=== PATIENT | female | born 1970 | race Caucasian/White ===

== ENCOUNTER → 2018-09-24 18:02 | Outpatient (CLI) | payer OTHER, SELFPAY ==
[2018-09-24 19:02] LABS: Amphetamine/Metha Screen,Urine Negative ng/mL (<1000); Barbiturates Screen,Urine Negative ng/mL (<200); Benzodiazepines Screen,Urine Negative ng/mL (<200); Cannabinoid Screen,Urine Negative ng/mL (<50); Cocaine Screen,Urine Negative ng/mL (<300); Methadone Screen,Urine Negative ng/mL (<300); Opiate Screen,Urine Negative ng/mL (<300); Phencyclidine Screen,Urine Negative ng/mL (<25)
== END ==
PROVIDERS: Visit Provider Physician Assistant
DX: Z79.899 Other long term (current) drug therapy (principal)
CPT/HCPCS: 80305

== ENCOUNTER → 2018-10-22 11:05 | Outpatient (CLI) | payer OTHER, SELFPAY ==
[2018-10-23 16:06] LABS: Estradiol 206.6 pg/mL (.)
[2018-10-24 06:07] LABS: Testosterone,Free 0.6 pg/mL (0.0-4.2)
== END ==
PROVIDERS: PCP Physician Assistant; Visit Provider Obstetrics & Gynecology
DX: N95.1 Menopausal and female climacteric states (principal)
CPT/HCPCS: 36415; 82670; 84402

== ENCOUNTER → 2019-08-20 16:33 | Outpatient (CLI) | payer OTHER, SELFPAY | PROVIDERS: Visit Provider Physician Assistant | DX: R10.9 Unspecified abdominal pain (principal) | CPT/HCPCS: 87086 ==

== ENCOUNTER → 2020-08-04 19:31 | Outpatient (CLI) | payer BC, SELFPAY | PROVIDERS: Visit Provider Physician Assistant | DX: N39.0 Urinary tract infection, site not specified (principal) | CPT/HCPCS: 87086 ==

== ENCOUNTER 2022-03-17 09:19 | Emergency (ER) | payer BC, SELFPAY ==
[2022-03-17 09:19] VITALS: BP 138/92; PULSE 110; RESP 18; TEMP 37; O2SAT 99; BMI 22.8
[2022-03-17 10:07] LABS: Strep Scrn Group A (Rapid) Negative (Negative)
--- NOTE | 2022-03-17 10:23 | HMH.EDUTC ---
[facility] [place] Impression: Sinusitis Qualifiers: Sinusitis location: unspecified location Chronicity: unspecified Qualified Code(s): J32.9 - Chronic sinusitis, unspecified Disposition: Home, Self-Care Condition on Discharge: Good Instructions: Sinusitis, DI for Sinusitis Additional Instructions: *Monitor Temp, Over the counter Motrin or Tylenol as directed/as needed Tylenol every 4 hours and Motrin every 6 hours (as long as your family doctor has told you that you can take it) for fever or pain. and straight to ER if unable to lower temp less than 101.0 after medication given *Warm salt water gargles may help to soothe the throat *Throat Lozenges *Warm fluids like tea with honey may help to soothe the throat *Sleep elevated *Humidifier/Vaporizer Your throat swab was sent for culture. Those results are typically sent to your primary care. Be sure to follow up in 2-3 days with your family doctor/primary care physician if no improvement so they can review those result and treat if necessary. If you don?t have a primary care doctor, I recommend you get one but in the mean time, you will have to return to a walk in clinic Follow up IMMEDIATELY for new or worsening symptoms or no Noticeable improvement over the next 48-72 hours. 911 for difficulty breathing or swallowing Prescriptions: Amoxicillin/Potassium Clav [Amox-Clav 875-125 mg Tablet] 1 tab PO BID #14 tab Transmission Status: Pending to [facility] #[id number] Fluticasone Propionate [Flonase 50mcg nasal spray 16gm] 1 spr NS DAILY #1 each Transmission Status: Pending to [facility] #[id number] Referrals: Alondra Browning PA [Primary Care Provider] - As needed Time of Disposition: 10:35 Medical Decision Making - Tucker Inquiry Pt receiving controlled substance: No Tucker was queried for this patient: No Vital Signs: 03/17/22 09:19 Temperature 98.6 F Temperature Source Oral Pulse Rate [Left Radial] 110 H Respiratory Rate 18 Blood Pressure [Right Arm] 138/92 H Blood Pressure Mean [Right Arm] 107 Blood Pressure Source [Right Arm] Automatic Cuff Blood Pressure Position [Right Arm] Sitting 02 Sat by Pulse Oximetry 99 Oxygen Delivery Method Room Air - Lab Data Lab results reviewed: Yes: I reviewed the patient's lab results. Lab Results 03/17/22 09:40: Group A Strep Rapid Negative Orders (Tests/Meds): ORDERS Category Date Time Status Strep Screen Confirmation Stat Micro 03/17/22 09:40 [place] [facility] [place] - General Stated complaint: congestion, sore throat, h/a, right ear ache Time Seen by Provider: 03/17/22 10:23 Mode of Arrival: Ambulatory Source of Information: Patient Limitations: No Limitations Description of Symptoms (Recalled from Triage Doc. by RN): c/o runny nose, sinus pressure, scratchy throat and ear pain for 2 days HEENT Symptoms (Recalled from RN notes): Yes Resp Symptoms (Recalled from RN notes): No Skin Symptoms (Recalled from RN notes): No MS Symptoms (Recalled from RN notes): No Functional Status (Recalled from RN notes): na - History of Present Illness Provider Complaint: Patient states that she has been having sinus pain and pressure for over a week and for the last couple of days she has been having pain in her right ear and pressure behind her eyes and in her teeth States that today she was still not feeling well so she came in to get checked out - Related Data Home Medications Medication Instructions Recorded Confirmed lorazepam 0.5 mg tablet 0.25 mg PO QHS PRN tab 06/16/19 06/03/20 Previous Rx's Medication Instructions Recorded ondansetron 8 mg disintegrating 8 mg PO Q8H PRN 5 Days #10 tab 08/06/20 tablet ciprofloxacin HCl 500 mg tablet 500 mg PO BID 5 Days #10 tab 06/21/21 phenazopyridine 200 mg tablet 200 mg PO TID PRN 0 Days #6 tab 06/21/21 Amoxicillin/Potassium Clav 1 tab PO BID #14 tab 03/17/22 [Amox-Clav 875-125 mg Tablet] Fluticasone Propionate [Flon
[2022-03-17 10:40] VITALS: BP 138/92; PULSE 110; RESP 18; TEMP 37; O2SAT 99
== END 2022-03-17 10:41 | disposition home or self-care (01) ==
PROVIDERS: Emergency Provider Nurse Practitioner; PCP Physician Assistant
DX: J32.9 Chronic sinusitis, unspecified (principal)
CPT/HCPCS: 87430; 99212; G0463

== ENCOUNTER 2022-04-13 18:59 | Emergency (ER) | payer BC, SELFPAY ==
--- NOTE | 2022-04-13 19:11 | XR_ITS ---
PROCEDURE INFORMATION: Exam: XR Chest Exam date and time: 04/13/2022 7:18 PM Age: 52 years old Clinical indication: Cough; Additional info: Congestion TECHNIQUE: Imaging protocol: XR of the chest. Views: 2 views. COMPARISON: No relevant prior studies available. FINDINGS: Lungs: Solitary approximate 3 mm nodule demonstrated laterally in the left upper lobe. No evidence of acute cardiopulmonary disease. Pleural spaces: Unremarkable. No pleural effusion. No pneumothorax. Heart/Mediastinum: Unremarkable. No cardiomegaly. Bones/joints: Unremarkable. IMPRESSION: 1. No evidence of acute cardiopulmonary disease. 2. Solitary 3 mm nodule demonstrated laterally in the left upper lung. Findings may correspond to a calcified granuloma. If no prior radiographs available to establish stability of the findings, follow-up with computerized tomography.
[2022-04-13 19:12] VITALS: BP 146/86; PULSE 114; RESP 16; TEMP 36.8; O2SAT 97; BMI 22.8
--- NOTE | 2022-04-13 19:20 | HMH.EDUTC ---
[facility] – [place] Disposition Clinical Impression: Bronchitis Disposition: Home, Self-Care Condition on Discharge: Good Instructions: Methylprednisolone Additional Instructions: Continue taking prescribed antibiotics as prescribed by your Family Doctor Your Prednisone was changed to Medrol dose pack as requested Make sure to follow up with your Family Doctor for repeat chest xray and further imaging if needed Return if needed Straight to ER if any life threatening symptoms Prescriptions: methylPREDNISolone [Medrol 4mg tab] 4 mg PO DIRECTED #21 tab Transmission Status: Pending to [facility] #[id number] Referrals: Alondra Browning PA [Primary Care Provider] - As needed Time of Disposition: 20:36 Medical Decision Making - Tucker Inquiry Pt receiving controlled substance: No Tucker was queried for this patient: No Vital Signs: 04/13/22 19:12 Temperature 98.3 F Temperature Source Oral Pulse Rate [Left] 114 H Respiratory Rate 16 Blood Pressure [Right Arm] 146/86 H Blood Pressure Mean [Right Arm] 106 02 Sat by Pulse Oximetry 97 - Radiology Data #1 Image(s): Chest Image Reviewed: Yes I have reviewed radiologist's interpretation Medical Decision Narrative: Discussed xray finding and recommended follow up with her PCP for further imaging due to no images available for comparison and patient agreed [facility] [place] HPI - General Stated complaint: SOA, yamilex Time Seen by Provider: 04/13/22 19:20 Mode of Arrival: Ambulatory Source of Information: Patient Limitations: No Limitations Description of Symptoms (Recalled from Triage Doc. by RN): pt states she has had congestion, tightness in her lungs and a cough since Sat. pt states Tues. she was seen by her PCP and given a rocephin and decadron inj. pt was also given a zpack. pt states today would be day three but she has not taken it today. pt also states she was prescribed prednisone but that it makes her sick so she didn't pick it up. HEENT Symptoms (Recalled from RN notes): Yes Resp Symptoms (Recalled from RN notes): Yes Skin Symptoms (Recalled from RN notes): No MS Symptoms (Recalled from RN notes): No Functional Status (Recalled from RN notes): wnl - History of Present Illness Provider Complaint: Patient states that she was seen by her PCP a few days ago and was given Rocephin shot and started on azithromycin and prescribed Prednisone States that she didnt get the prednisone filled because it makes her sick and she usually does a taper pack and she can handle that better States that she came in tonight wanting to get her prednisone prescription changed and maybe get an xray to see if she may have bronchitis or something - Related Data Home Medications Medication Instructions Recorded Confirmed lorazepam 0.5 mg tablet 0.25 mg PO QHS PRN tab 06/16/19 04/11/22 progesterone micronized 4 % 1 appful VG Q OTHER DAY 04/11/22 04/11/22 vaginal gel Previous Rx's Medication Instructions Recorded azithromycin 250 mg tablet See Rx Instructions PO .COMPLEX #6 04/11/22 tab benzonatate 100 mg capsule 100 mg PO TID PRN #30 cap 04/11/22 methylPREDNISolone [Medrol 4mg 4 mg PO DIRECTED #21 tab 04/13/22 tab] Allergies Allergy/AdvReac Type Severity Reaction Status Date / Time No Known Allergies Allergy Verified 04/11/22 15:56 - Worker's Comp Is this a Worker's Comp case?: No [facility] History - Hepatitis A Screen Attestation statement:: This patient has been screened for Hepatitis A risk factors. I have reviewed the patient's past medical history: Yes Medical History: Reports:: Anxiety, Urinary Tract Infection Denies:: Cancer, Diabetes Mellitus Type 1, Diabetes Mellitus Type 2, Internal Pacemaker, MRSA, Seizures Other Surgeries: Yes: Colonoscopy, Hysterectomy-Total. No: Pacemaker Amputation: No Fractures: No - Social History Smoking Status: Never smoker Alcohol Intake: never Substance Use Type: denies use Occupational Status: employe
[2022-04-13 20:53] VITALS: BP 146/86; PULSE 114; RESP 16; TEMP 36.8
== END 2022-04-13 20:54 | disposition home or self-care (01) ==
PROVIDERS: Emergency Provider Nurse Practitioner; PCP Physician Assistant
DX: J40 Bronchitis, not specified as acute or chronic (principal); N39.0 Urinary tract infection, site not specified; F41.9 Anxiety disorder, unspecified; Z79.52 Long term (current) use of systemic steroids; Z82.49 Family history of ischemic heart disease and other diseases of the circulatory system; Z80.9 Family history of malignant neoplasm, unspecified
CPT/HCPCS: 71046; 96372; 99213; G0463; J0696

== ENCOUNTER → 2022-11-09 16:06 | Outpatient (CLI) | payer BC, SELFPAY ==
--- NOTE | 2022-11-09 16:42 | XR_ITS ---
FINAL REPORT CLINICAL HISTORY: f/u 3mm solitairy nodule COMPARISON: 04/13/2022 FINDINGS: 2 views of the chest were obtained . The heart is normal in size. The mediastinum is within normal limits. There is a stable, 5 mm nodule in the left upper lobe, favor granuloma. The lungs are otherwise clear. There is no pneumothorax. Osseous structures are unremarkable. IMPRESSION: Stable 5 mm left upper lobe nodule, favor granuloma. Reviewed, Interpreted and Dictated by Kasi Figueroa III, MD Transcribed by Bozena Dias Authenticated and [facility]
== END ==
PROVIDERS: PCP Physician Assistant; Visit Provider Physician Assistant
DX: R91.1 Solitary pulmonary nodule (principal)
CPT/HCPCS: 71046

== ENCOUNTER 2023-06-02 16:04 | Emergency (ER) | payer BC, SELFPAY ==
[2023-06-02] VITALS (8 sets, daily range): BP systolic 113–165; BP diastolic 72–89; PULSE 72–90; RESP 16; TEMP 36.6–36.9; O2SAT 96–99; BMI 22.4
--- NOTE | 2023-06-02 16:27 | PC.NURSE ---
DR NICE AT BEDSIDE
--- NOTE | 2023-06-02 16:35 | CT_ITS ---
PROCEDURE INFORMATION: Exam: CT Head Without Contrast Exam date and time: 06/02/2023 4:41 PM Age: 53 years old Clinical indication: Headache not specified; Patient HX: Sharp pains radiating through head x 1 wk. PT states she experiences a lot of pressure in RT side of face, no change of vision or vertigo; Additional info: Cluster h/a TECHNIQUE: Imaging protocol: Computed tomography of the head without contrast. Radiation optimization: All CT scans at this facility use at least one of these dose optimization techniques: automated exposure control; mA and/or kV adjustment per patient size (includes targeted exams where dose is matched to clinical indication); or iterative reconstruction. REPORTING DATA: Count of CT and Cardiac NM exams in prior 12 months: This patient has received 0 known CTs and 0 known cardiac nuclear medicine studies in the 12 months prior to the current study. COMPARISON: No relevant prior studies available. FINDINGS: Brain: No evidence of acute parenchymal hemorrhage, extra-axial collection or local regional mass effect. Cerebral ventricles: The ventricles, sulci and cisterns are normal in size and configuration. No hydrocephalus or midline structure shift Pituitary gland and sella: Sellar/parasellar structures, orbits and craniocervical junction are unremarkable Paranasal sinuses: Visualized sinuses are unremarkable. No fluid levels. Mastoid air cells: Visualized mastoid air cells are well aerated. Bones/joints: No calvarial fracture Soft tissues: Unremarkable. IMPRESSION: No acute intracranial abnormality. No calvarial fracture.
--- NOTE | 2023-06-02 16:55 | PC.NURSE ---
ANNA WAS AT BS
[2023-06-02 17:09] LABS: Basophils # 0.1 K/mm3 (0-0.2); Basophils % 0.8 % (0.1-2.0); Eosinophils # 0.3 K/mm3 (0.0-0.4); Eosinophils % 3.9 % (0.1-12.0); Hematocrit 44.1 % (37.0-47.0); Hemoglobin 13.6 g/dL (12.2-16.2); Lymphocytes # 2.3 K/mm3 (0.7-4.5); Lymphocytes % 27.9 % (10-50); Mean Corpuscular HGB Conc 30.8 g/dL (31.8-35.4); Mean Corpuscular Hemoglobin 30.3 pg (27.0-31.2); Mean Corpuscular Volume 98.2 fl (81-99); Mean Platelet Volume 7.9 fl (7.4-10.4); Monocytes # 0.6 K/mm3 (0.1-1.0); Monocytes % 6.8 % (1.7-9.3); Neutrophils # 4.9 K/mm3 (1.8-7.8); Neutrophils % 60.7 % (37.0-80.0); Platelet Count 315 K/mm3 (142-424); Red Cell Distribution Width 13.6 % (11.5-17.5); White Blood Count 8.1 K/mm3 (4.8-10.8)
[2023-06-02 17:13] LABS: Alanine Aminotransferase 26 U/L (12-78); Albumin Level 4.1 g/dl (3.5-5.0); Albumin/Globulin Ratio 1.3 (1.1-1.8); Alkaline Phosphatase 113 U/L (38-126); Anion Gap 10.4 mEq/L (5-15); Aspartate Amino Transferase 31 U/L (14-36); Bilirubin,Total 0.4 mg/dl (0.2-1.3); Blood Urea Nitrogen 9 mg/dl (7-17); Calcium 9.6 mg/dl (8.4-10.2); Carbon Dioxide 30 mmol/L (22.0-30.0); Chloride 105 mmol/L (98-107); Creatinine Clearance Estimated 58 mL/min (50-200); Estimated Glomerular Filt Rate 65 ml/min (>60); GFR (African American) 79 ML/MIN (>60); Globulin 3.1 g/dL (1.3-3.2); Glucose 84 mg/dl (74-100); Potassium 3.4 mmoL/L (3.5-5.1); Sodium 142 mmol/L (136-145); Total Protein,Serum 7.2 g/dl (6.3-8.2)
--- NOTE | 2023-06-02 17:15 | PC.NURSE ---
ROUNDED ON PT NOTHING NEEDED AT THIS TIME, CALL LIGHT AT BS
[2023-06-02 17:18] LABS: C-Reactive Protein 2.8 mg/L (0-4)
[2023-06-02 17:43] LABS: Erythrocyte Sedimentation Rate 34 mm/hr (0-30)
--- NOTE | 2023-06-02 18:06 | HMH.EDGENADL ---
Discharge Plan Disposition Patient Disposition: Home, Self-Care Condition: Good Prescriptions Prescriptions: No Action lorazepam 0.5 mg tablet 0.25 mg PO QHS PRN (Reason: nerves) progesterone micronized 4 % gel 1 appful VG Q OTHER DAY azithromycin [Zithromax Z-Georges] 250 mg tablet See Rx Instructions PO .COMPLEX Qty: 6 0RF Rx Instructions: For 250 mg dose pack: take 500 mg today (day 1), then 250 mg for 4 days (days 2-5) PO methylprednisolone 4 mg tablet 4 mg PO DIRECTED Qty: 21 0RF Rx Instructions: Take as directed on package instructions Referrals Follow up/Referrals: Alondra Browning PA [Primary Care Provider] - See instructions Activity Restrictions/Add. Instructions Additional Instructions/Restrictions: Follow-up with your family doctor regarding this visit to the emergency department within the next 72 hours. If you have any other concerning signs or symptoms, return to the ER or your family doctor for further evaluation. Take Tylenol 1000 mg every 6 hours (4 times daily) and ibuprofen 400 mg every 6 hours (4 times daily) as needed with food and water to prevent GI upset and kidney damage. Clinical Impressions Clinical Impression: Cluster headache Qualifiers: Headache chronicity pattern: episodic headache Intractability: not intractable Qualified Code(s): G44.019 - Episodic cluster headache, not intractable Discharge ED Provider: Clement Cervantes General Adult HPI General Chief complaint: Headache Stated complaint: pain shooting to top of head Time Seen by Provider: 06/02/23 16:14 Mode of Arrival: Ambulatory Source of Information: Patient Limitations: No Limitations Description of Symptoms (Recalled from ER Triage Doc. by RN): PT REPORTS INTERMITTENT SUDDEN, SHARP PAIN TO THE TOP OF HER HEAD. PAIN LASTS ABOUT 30 SECONDS, HAS BEEN INTERMITTENT FOR ABOUT 1 WEEK. DENIES VISUAL DISTURBANCE OR RADIATING PAIN. DENIES PAIN AT THIS TIME. NO ACCIDENT OR INJURY History of Present Illness HPI narrative: Is a 53-year-old female with no relevant medical history presenting with headache. Headaches last approximately 20 to 30 seconds, are self aborting. Happened mostly in later afternoon and evening. Patient states that she started having headaches approximately 2 weeks prior to arrival. They are right-sided, feel deep in her skull, associated with right-sided tearing of the eye. Denies vision changes, facial weakness, right upper or right lower extremity symptoms, left sided symptoms. Denies any trauma, jaw claudication, fevers, chills, weight loss, scalp tenderness, rash, or any other concerns. Related Data Home Medications Medication Instructions Recorded Confirmed lorazepam 0.5 mg tablet 0.25 mg PO QHS PRN nerves 06/16/19 08/24/22 progesterone micronized 4 % 1 appful vaginal Q OTHER DAY 04/11/22 08/24/22 vaginal gel Previous Rx's Medication Instructions Recorded azithromycin 250 mg tablet See Rx Instructions PO .COMPLEX #6 08/24/22 (Zithromax Z-Georges) tabs methylprednisolone 4 mg tablet 4 mg PO DIRECTED #21 tabs 08/24/22 Allergies Allergy/AdvReac Type Severity Reaction Status Date / Time No Known Allergies Allergy Verified 08/24/22 13:55 [facility] Disclaimer: The information contained in this section may have been updated after the patient was seen, as this information can be updated by other users. Medical History (Updated 06/02/23 @ 18:09 by Clement Cervantes MD) Anxiety Otitis media Surgical History (Updated 06/02/23 @ 16:15 by Zena Rios RN) History of hysterectomy Hx of cholecystectomy Family History (Updated 06/02/23 @ 16:15 by Zena Rios RN) Other No significant family history Social History (Updated 06/02/23 @ 16:15 by Zena Rios RN) Smoking Status: Never smoker second hand exposure: No alcohol intake: never substance use type: denies use current occupational status: employed Travel in the [employer]
== END 2023-06-02 18:25 | disposition home or self-care (01) ==
PROVIDERS: Emergency Provider Emergency Medicine; PCP Physician Assistant
DX: G44.019 Episodic cluster headache, not intractable (principal); F41.9 Anxiety disorder, unspecified
CPT/HCPCS: 70450; 80053; 85025; 85651; 86140; 99285

== ENCOUNTER → 2023-06-15 14:39 | Outpatient (CLI) | payer BC, SELFPAY ==
--- NOTE | 2023-06-15 14:39 | MR_ITS ---
FINAL REPORT TECHNIQUE: Imaging of the intracerebral vasculature was obtained without intravenous contrast using [id number] imaging. CLINICAL HISTORY: headaches on top of head for 30 seconds x 2-3 times a day for 2-3 weeks COMPARISON: None FINDINGS: Flow related signal intensity within the intracerebral vasculature is preserved. There is no evidence of aneurysm, significant stenosis or AVM. IMPRESSION: Unremarkable MR angiogram of the brain without contrast. Reviewed, Interpreted and Dictated by Julia Mirza MD Transcribed by Franny Marrero Authenticated and [facility]
--- NOTE | 2023-06-15 14:39 | MR_ITS ---
FINAL REPORT TECHNIQUE: Multiplanar and multisequence imaging of the brain was obtained without contrast. CLINICAL HISTORY: headaches headaches on top of head for 30 seconds x 2-3 times a day for 2-3 weeks COMPARISON: None FINDINGS: There is global atrophy. There is no mass effect or midline shift. There are no areas of abnormal signal intensity. The ventricles are symmetric without hydrocephalus. The cerebellum and brainstem have an unremarkable appearance. There are no areas of restricted diffusion on diffusion weighted images to suggest acute infarct. Posterior fossa is without acute abnormality. Signal intensity in the proximal cord is normal. Soft tissues are without acute abnormality. IMPRESSION: No acute intracranial abnormality. Reviewed, Interpreted and Dictated by Julia Mirza MD Transcribed by Franny Marrero Authenticated and [facility]
== END ==
PROVIDERS: PCP Physician Assistant; Visit Provider Physician Assistant
DX: G44.019 Episodic cluster headache, not intractable (principal)
CPT/HCPCS: 70544; 70551

== ENCOUNTER 2023-12-17 15:06 | Outpatient (CLI) | payer BC, SELFPAY ==
--- NOTE | 2023-12-17 15:06 | CT_ITS ---
FINAL REPORT TECHNIQUE: Axial images were obtained from the lung apex to the mid abdomen by computed tomography. Coronal reformatted images were obtained. This study was performed with techniques to keep radiation doses as low as reasonably achievable, (ALARA). Individualized dose reduction techniques using automated exposure control or adjustment of mA and/or kV according to the patient''s size were employed. CLINICAL HISTORY: nodule COMPARISON: Chest x-ray 11/09/2022 FINDINGS: There is no axillary adenopathy. There is no mediastinal mass or adenopathy. There is a calcified left hilar lymph node. Heart size is normal. There is no pericardial or pleural effusion. There is a calcified granuloma in the left upper lobe. No suspicious infiltrate or nodule is identified. Limited images of the upper abdomen demonstrate no acute findings. IMPRESSION: Calcified granuloma left upper lobe likely represents findings on prior chest x-ray. No acute cardiopulmonary process. Reviewed, Interpreted and Dictated by Tre Spence MD Transcribed by Franny Marrero Authenticated and [facility]
== END 2023-12-17 23:59 ==
PROVIDERS: PCP Physician Assistant; Visit Provider Physician Assistant
DX: R91.1 Solitary pulmonary nodule (principal)
CPT/HCPCS: 71250

== ENCOUNTER 2024-04-02 10:32 | Outpatient (CLI) | payer BC, SELFPAY ==
--- NOTE | 2024-04-02 10:44 | XR_ITS ---
FINAL REPORT CLINICAL HISTORY: chest pain COMPARISON: None FINDINGS: Two views of the chest were obtained. The heart size and pulmonary vascularity are within normal limits. The mediastinum is normal. No acute pulmonary abnormality is identified. There is no pneumothorax. The bony thorax is intact. IMPRESSION: No active cardiopulmonary disease. Reviewed, Interpreted and Dictated by Kasi Figueroa III, MD Transcribed by Consuelo Cary Authenticated and [facility] [place]
[2024-04-02 11:23] LABS: D-Dimer 0.64 ug/mL (0.0-0.5)
[2024-04-02 11:32] LABS: Cholesterol 269 mg/dl (140-200); Triglycerides 277 mg/dl (30-150); VLDL Cholesterol 55 mg/dL (0-40)
[2024-04-02 11:39] LABS: Chol/HDL Ratio 2.5 (1-3.5); HDL Cholesterol 107 mg/dl (40-60)
[2024-04-02 11:43] LABS: Direct LDL Cholesterol 62.53 mg/dL (100-129)
[2024-04-02 11:58] LABS: Troponin I < 0.01 ng/ml (0.00-0.034)
== END 2024-04-02 23:59 | disposition home or self-care (01) ==
LOC: LAB 10:34
PROVIDERS: PCP Physician Assistant; Visit Provider Family Medicine
DX: R07.9 Chest pain, unspecified (principal)
CPT/HCPCS: 36415; 71046; 80061; 84484; 85378

== ENCOUNTER 2024-04-02 18:42 | Emergency (ER) | payer BC, SELFPAY ==
[2024-04-02 18:44] VITALS: BP 159/85; PULSE 85; RESP 16; TEMP 36.8; O2SAT 98; BMI 23.4
[2024-04-02 19:00] VITALS: BP 149/90; PULSE 95; O2SAT 99
--- NOTE | 2024-04-02 19:04 | ED_ITS ---
Discharge Plan Disposition Patient Disposition: Home, Self-Care Chief Complaint: Recheck/Abnormal Lab/Rx Prescriptions Prescriptions: No Action progesterone micronized 200 mg capsule 200 mg PO HS thyroid (pork) [FIBERGLASS TECHNICIAN Thyroid] 30 mg tablet 30 mg PO DAILY Patient Comments: TAKE 1 TABLET BY MOUTH EVERY MORNING AND 1 TABLET BY MOUTH MID-AFTERNOON omeprazole 20 mg capsule,delayed release(DR/EC) 20 mg PO DAILY Qty: 30 2RF sucralfate [Carafate] 1 gram tablet 1 g PO BID Qty: 60 2RF lorazepam 0.5 mg tablet 0.25 mg PO QHS PRN (Reason: nerves) buspirone 5 mg tablet 5 mg PO DAILY Referrals Follow up/Referrals: Alondra Browning PA [Primary Care Provider] - See instructions Activity Restrictions/Add. Instructions Additional Instructions/Restrictions: Call your family doctor to establish care for this visit to the emergency department and schedule follow-up within 48 hours to ensure improvement. If you have any worsening of your condition or any other concerning signs or symptoms, return to the emergency department or your primary care doctor for further evaluation. Daily antihistamine like Zyrtec or Claritin can help with postnasal drip symptoms. Clinical Impressions Clinical Impression: Cough Discharge ED Provider: Clement Cervantes General Adult HPI <NITHYA Tang - Last Filed: 04/02/24 19:04> General Chief complaint: Recheck/Abnormal Lab/Rx Stated complaint: Abnormal Lab work Time Seen by Provider: 04/02/24 18:51 Related Data Home Medications Medication Instructions Recorded Confirmed lorazepam 0.5 mg tablet 0.25 mg PO QHS PRN nerves 06/16/19 04/02/24 progesterone micronized 200 mg 200 mg PO HS 07/18/23 04/02/24 capsule buspirone 5 mg tablet 5 mg PO DAILY 11/22/23 04/02/24 thyroid (pork) 30 mg tablet (FIBERGLASS TECHNICIAN 30 mg PO DAILY 04/02/24 04/02/24 Thyroid) Previous Rx's Medication Instructions Recorded omeprazole 20 mg capsule,delayed 20 mg PO DAILY #30 caps 04/02/24 release sucralfate 1 gram tablet (Carafate) 1 g PO BID #60 tabs 04/02/24 Allergies Allergy/AdvReac Type Severity Reaction Status Date / Time No Known Allergies Allergy Verified 04/02/24 09:47 <Clement Cervantes MD - Last Filed: 04/02/24 20:27> History of Present Illness HPI narrative: Please note that above description of symptoms, in this electronic medical record under categorization of recalled from ER triage doctor by RN are reflective of an initial nursing assessment, however, is not reflective of my full history and physical exam that was personally taken and clarified. Consequentially, this preceding description of symptoms, which may include the patient's categorized chief complaint in the EMR, do not reflect my personal clinical impression, and the ultimate description of history of present illness and patient stated complaints should be deferred to this section of the note. Unless stated otherwise or congruent with this section of the note, additional signs, symptoms, or incongruence should be interpreted as inaccurate with my clinical impression. [facility] <NITHYA Tang - Last Filed: 04/02/24 19:04> [facility] Disclaimer: The information contained in this section may have been updated after the patient was seen, as this information can be updated by other users. Medical History Otitis media Anxiety Surgical History Hx of cholecystectomy History of hysterectomy Family History Other No significant family history Social History Smoking Status: Never smoker second hand exposure: No alcohol intake: never substance use type: denies use current occupational status: employed Travel in the last 8 weeks: None household members: spouse housing: house current occupation: [employer] current occupational exposures/hazards: No caffeine: Yes <NITHYA Tang - Last Filed: 04/02/24 19:04> ROS Obtained: Yes Systems reviewed as appropriate & no additional complaints except as documented Physical Exam <NITHYA Tang - Last Filed: 04/02/24 19:04> General General appearance: alert and in no apparent distress Head Head exam: atraumatic and normal inspection Eye Eye exam: Present normal appearance, PERRL and EOMI ENT ENT exam: Present normal exam, normal oropharynx and mucous membranes moist Neck Neck exam: Present normal inspection, full ROM and trachea midline; Absent lymphadenopathy Chest Chest inspection: Present normal inspection and symmetric chest wall rise Respiratory Respiratory exam: Present normal lung sounds bilaterally; Absent accessory muscle use Cardiovascular Cardiovascular exam: Present regular rate, normal rhythm, normal heart sounds, +S1 and +S2 Abdominal Exam Abdominal exam: Present soft and normal bowel sounds; Absent tenderness, guarding or rebound Extremities Exam Extremities exam: Present normal inspection and full ROM Neurological Exam Neurological exam: Present alert, oriented X3 and CN II-XII intact Psychiatric Psychiatric exam: Present normal affect and normal mood Skin Skin exam: Present warm, dry and normal color Lymphatic Lymphatic Findings: no adenopathy <Clement Cervantes MD - Last Filed: 04/02/24 20:27> Respiratory Respiratory exam: Absent respiratory distress, wheezes, stridor or prolonged expiratory phase Medical Decision Making <NITHYA Tang - Last Filed: 04/02/24 19:04> Vital Signs: 04/02/24 18:44 04/02/24 19:00 04/02/24 19:30 Temperature 98.3 F Temperature Source Oral Pulse Rate 95 H 84 Pulse Rate [Right] 85 Respiratory Rate 16 Blood Pressure 149/90 H 132/83 Blood Pressure [Right Arm] 159/85 H Blood Pressure Mean 107 99 Blood Pressure Mean [Right Arm] 109 Blood Pressure Source [Right Arm] Automatic Cuff 02 Sat by Pulse Oximetry 98 99 99 Oxygen Delivery Method Room Air Lab Data Lab Results 04/02/24 18:58: WBC 12.4 H, RBC 4.93, Hgb 15.7, Hct 48.9 H, MCV 99.1 H, MCH 31.9 H, MCHC 32.1, RDW 14.4, Plt Count 337, MPV 7.9, Neut % (Auto) 65.5, Lymph % (Auto) 24.4, [place] % (Auto) 6.9, Eos % (Auto) 1.8, Baso % (Auto) 1.3, Neut # (Auto) 8.2 H, Lymph # (Auto) 3.0, [place] # (Auto) 0.9, Eos # (Auto) 0.2, Baso # (Auto) 0.2, D-Dimer 0.45, Sodium 140, Potassium 3.8, Chloride 101, Carbon Dioxide 28, Anion Gap 14.8, BUN 6 L, Creatinine 1.00, Estimated Creat Clear 54, Estimated GFR 57 L, Est GFR ( Amer) 69, Glucose 100, Calcium 10.5 H, Troponin I < 0.01 04/02/24 18:58 04/02/24 18:58 Orders (Tests/Meds): ED MEDICATIONS Discontinued Medications Generic Name Dose Route Start Last Admin Trade Name Felix PRN Reason Stop Dose Admin Acetaminophen 1,000 mg 04/02/24 19:06 04/02/24 19:32 Acetaminophen 1,000mg/100ml Vial IV 04/02/24 19:07 1,000 mg ONCE ONE Administration Belladonna Alkaloids 60 ml 04/02/24 19:06 04/02/24 19:35 Belladonna Alkaloids 60 Ml Ml PO 04/02/24 19:07 Not Given ONCE ONE Ketorolac Tromethamine 15 mg 04/02/24 19:06 04/02/24 19:32 Ketorolac 30mg/Ml Vial IV 04/02/24 19:07 15 mg ONCE ONE Administration ORDERS Category Date Time Status BMP [Basic Metabolic Panel] Stat Lab 04/02/24 18:58 Completed CBC w/Auto Diff [Complete Blood Count Auto Diff] Stat Lab 04/02/24 18:58 Completed D-Dimer Stat Lab 04/02/24 18:58 Completed Trop I [Troponin I] Stat Lab 04/02/24 18:58 Completed Troponin I Q3H Lab 04/02/24 22:15 Ordered Troponin I Q3H Lab 04/03/24 01:15 Ordered Medical Decision Narrative: In summary patient is a [age, sex] who presents to the emergency department for evaluation of [complaint]. Patient is [hemodynamically stable/unstable] upon arrival, [febrile/afebrile]. [Unremarkable physical exam, nonfocal exam versus focal remarkable exam]. Differential diagnosis includes [DDx]. Initial workup will be conducted with [hematologic labs, imaging, respiratory swab, describe workup]. Initial interventions include [crystalloid bolus, medications, p.o. challenge, etc.] initial workup reviewed by me [hematologic labs are remarkable for... Imaging remarkable for... Urinalysis remarkable for]. Upon repeat evaluation [patient had acceptable resolution of symptoms, had persistent pain for which additional interventions were conducted (describe interventions), tolerated p.o., was ambulatory, etc.]. Given this [patient is appropriate for discharge at this time and will be discharged with a prescription for... The case was discussed with hospital medicine regarding management and they will admit the patient their service for continued evaluation at this time... Etc.] Places where you can increase complexity: I informally interpreted the patient's chest x-ray or CT read and is remarkable for... Documenting what the regulatory auditor shows with rate and rhythm Consideration of test but deferring. Ex: I considered chest x-ray on this patient however given that they have no oxygen requirement and are clear to auscultation all lung oconnor will be deferred. Social determinants of health: Given that patient is undomiciled increases complexity. Given that patient has polysubstance abuse compounds all aspects of care <Clement Cervantes MD - Last Filed: 04/02/24 20:27> Medical Records Medical records reviewed: Yes I reviewed the patient's medical records. Tucker Inquiry Pt receiving controlled substance: No Tucker was queried for this patient: No Vital Signs: 04/02/24 18:44 04/02/24 19:00 04/02/24 19:30 Temperature 98.3 F Temperature Source Oral Pulse Rate 95 H 84 Pulse Rate [Right] 85 Respiratory Rate 16 Blood Pressure 149/90 H 132/83 Blood Pressure [Right Arm] 159/85 H Blood Pressure Mean 107 99 Blood Pressure Mean [Right Arm] 109 Blood Pressure Source [Right Arm] Automatic Cuff 02 Sat by Pulse Oximetry 98 99 99 Oxygen Delivery Method Room Air Lab Data Lab Results 04/02/24 18:58: WBC 12.4 H, RBC 4.93, Hgb 15.7, Hct 48.9 H, MCV 99.1 H, MCH 31.9 H, MCHC 32.1, RDW 14.4, Plt Count 337, MPV 7.9, Neut % (Auto) 65.5, Lymph % (Auto) 24.4, [place] % (Auto) 6.9, Eos % (Auto) 1.8, Baso % (Auto) 1.3, Neut # (Auto) 8.2 H, Lymph # (Auto) 3.0, [place] # (Auto) 0.9, Eos # (Auto) 0.2, Baso # (Auto) 0.2, D-Dimer 0.45, Sodium 140, Potassium 3.8, Chloride 101, Carbon Dioxide 28, Anion Gap 14.8, BUN 6 L, Creatinine 1.00, Estimated Creat Clear 54, Estimated GFR 57 L, Est GFR ( Amer) 69, Glucose 100, Calcium 10.5 H, Troponin I < 0.01 Orders (Tests/Meds): ED MEDICATIONS Discontinued Medications Generic Name Dose Route Start Last Admin Trade Name Felix PRN Reason Stop Dose Admin Acetaminophen 1,000 mg 04/02/24 19:06 04/02/24 19:32 Acetaminophen 1,000mg/100ml Vial IV 04/02/24 19:07 1,000 mg ONCE ONE Administration Belladonna Alkaloids 60 ml 04/02/24 19:06 04/02/24 19:35 Belladonna Alkaloids 60 Ml Ml PO 04/02/24 19:07 Not Given ONCE ONE Ketorolac Tromethamine 15 mg 04/02/24 19:04/02/24 19:32 Ketorolac 30mg/Ml Vial IV 04/02/24 19:07 15 mg ONCE ONE Administration ORDERS Category Date Time Status BMP [Basic Metabolic Panel] Stat Lab 04/02/24 18:58 Completed CBC w/Auto Diff [Complete Blood Count Auto Diff] Stat Lab 04/02/24 18:58 Completed D-Dimer Stat Lab 04/02/24 18:58 Completed Trop I [Troponin I] Stat Lab 04/02/24 18:58 Completed Troponin I Q3H Lab 04/02/24 22:15 Ordered Troponin I Q3H Lab 04/03/24 01:15 Ordered Medical Decision Narrative: 54-year-old female with no relevant medical history presenting with rattling cough and abnormal labs. Patient states that she was having a rattling cough last couple of days. She started having intermittent chest pains, so went to see her family doctor today. Labs were drawn, troponin negative, x-ray was done and this was reportedly negative, but patient reportedly had elevated D-dimer. Was told to come to the emergency department for further evaluation. Patient denies any symptoms at this time, cough, fevers, chills, chest pain, shortness of breath, or otherwise. History was obtained via conversation with patient. On arrival, patient hemodynamically stable, alert, oriented x4, appropriate, GCS 15, moving all extremities spontaneously, pupils equal and reactive to light. Full physical exam performed and significant for very well-appearing female no acute distress. Lungs are clear to auscultation anterior and posterior bilaterally, cardiac Brain within normal limits. Differential includes viral syndrome, bronchitis, pneumonia, among others. Patient was given GI cocktail, Toradol for symptomatic management and correction of underlying abnormalities. Workup independently interpreted and significant for mild leukocytosis 12.4 with neutrophilia, but nonactionable overall. D- dimer normal, chemistry nonactionable. Chest x-ray independently interpreted and no acute cardiopulmonary space disease. See radiology read for full review of final results. PERC positive only for age, D-dimer negative. On reevaluation, patient still feeling baseline, feels good, no acute complaints. Discussion was had regarding use of antihistamine, she voiced her understanding. May be viral in nature producing postnasal drip, patient given 10 mg Decadron for this. Because patient at baseline without signs or symptoms of clinical decompensation, deemed appropriate for discharge. Results were relayed to patient who voiced understanding and were agreeable to outpatient management and follow up. I discussed my clinical impression with patient and answered all questions. At this time, the evidence for any other entities in the differential is insufficient to warrant any further testing or ED observation. This was explained as well. Advisory was given that persistent or worsening symptoms require further evaluation. I confirmed the understanding of this discussion. Critical Care <Clement Cervantes MD - Last Filed: 04/02/24 20:27> Critical Care Time Critical Care Time: No
[2024-04-02 19:15] LABS: Basophils # 0.2 K/mm3 (0-0.2); Basophils % 1.3 % (0.1-2.0); Eosinophils # 0.2 K/mm3 (0.0-0.4); Eosinophils % 1.8 % (0.1-12.0); Hematocrit 48.9 % (37.0-47.0); Hemoglobin 15.7 g/dL (12.2-16.2); Lymphocytes % 24.4 % (10-50); Mean Corpuscular HGB Conc 32.1 g/dL (31.8-35.4); Mean Corpuscular Hemoglobin 31.9 pg (27.0-31.2); Mean Corpuscular Volume 99.1 fl (81-99); Mean Platelet Volume 7.9 fl (7.4-10.4); Monocytes # 0.9 K/mm3 (0.1-1.0); Monocytes % 6.9 % (1.7-9.3); Neutrophils # 8.2 K/mm3 (1.8-7.8); Neutrophils % 65.5 % (37.0-80.0); Platelet Count 337 K/mm3 (142-424); Red Blood Count 4.93 M/mm3 (4.20-5.40); Red Cell Distribution Width 14.4 % (11.5-17.5); White Blood Count 12.4 K/mm3 (4.8-10.8)
[2024-04-02 19:20] LABS: Chloride 101 mmol/L (98-107); Sodium 140 mmol/L (136-145)
[2024-04-02 19:21] LABS: Potassium 3.8 mmoL/L (3.5-5.1)
[2024-04-02 19:24] LABS: Anion Gap 14.8 mEq/L (5-15); Blood Urea Nitrogen 6 mg/dl (7-17); Calcium 10.5 mg/dl (8.4-10.2); Carbon Dioxide 28 mmol/L (22.0-30.0); Creatinine Clearance Estimated 54 mL/min (50-200); Estimated Glomerular Filt Rate 57 ml/min (>60); GFR (African American) 69 ML/MIN (>60); Glucose 100 mg/dl (74-100)
[2024-04-02 19:30] VITALS: BP 132/83; PULSE 84; O2SAT 99
[2024-04-02] MEDS: ACETAMINOPHEN 1,000MG/100ML VIAL 1000 MG IV (19:32)
[2024-04-02] MEDS: KETOROLAC 30MG/ML VIAL 15 MG IV (19:32)
[2024-04-02 19:37] LABS: Troponin I < 0.01 ng/ml (0.00-0.034)
[2024-04-02 19:43] LABS: D-Dimer 0.45 ug/mL (0.0-0.5)
[2024-04-02] MEDS: DEXAMETHASONE 4MG/ML 1ML VIAL 10 MG IV (20:30)
[2024-04-02 20:31] VITALS: BP 132/83; PULSE 84; RESP 16; TEMP 36.8; O2SAT 99
== END 2024-04-02 20:37 | disposition home or self-care (01) ==
PROVIDERS: Physician Assistant; Emergency Provider Emergency Medicine; PCP Physician Assistant
DX: R07.89 Other chest pain; R05.8 Other specified cough
CPT/HCPCS: 80048; 84484; 85025; 85378; 96374; 96375; 99284; J0131

== ENCOUNTER 2024-07-15 14:19 | Outpatient (CLI) | payer BC, SELFPAY ==
--- NOTE | 2024-07-15 14:39 | XR_ITS ---
FINAL REPORT CLINICAL HISTORY: epigastric pain FINDINGS: A PA view of the chest was obtained. The mediastinum is unremarkable. There are calcified granulomas in the lungs. The lungs are otherwise clear. There is no free air beneath the diaphragm. Upright and supine views of the abdomen reveal a nonspecific, nonobstructive bowel gas pattern. No abnormal calcifications are identified. There is a moderate amount of stool throughout the colon. IMPRESSION: Moderate stool burden. Reviewed, Interpreted and Dictated by Tre Spence MD Transcribed by Senait Wilkinson Authenticated and [facility]
[2024-07-15 15:02] LABS: Basophils # 0.1 K/mm3 (0-0.2); Basophils % 0.7 % (0.1-2.0); Eosinophils # 0.2 K/mm3 (0.0-0.4); Hematocrit 42.7 % (37.0-47.0); Hemoglobin 13.4 g/dL (12.2-16.2); Lymphocytes # 2.6 K/mm3 (0.7-4.5); Lymphocytes % 24.2 % (10-50); Mean Corpuscular HGB Conc 31.4 g/dL (31.8-35.4); Mean Corpuscular Hemoglobin 31.6 pg (27.0-31.2); Mean Corpuscular Volume 100.7 fl (81-99); Mean Platelet Volume 8.1 fl (7.4-10.4); Monocytes # 0.8 K/mm3 (0.1-1.0); Monocytes % 7.2 % (1.7-9.3); Neutrophils % 65.9 % (37.0-80.0); Platelet Count 324 K/mm3 (142-424); Red Blood Count 4.24 M/mm3 (4.20-5.40); Red Cell Distribution Width 15.3 % (11.5-17.5); White Blood Count 10.6 K/mm3 (4.8-10.8)
[2024-07-15 15:48] LABS: Alanine Aminotransferase 19 U/L (12-78); Albumin Level 3.6 g/dl (3.5-5.0); Albumin/Globulin Ratio 1.2 (1.1-1.8); Alkaline Phosphatase 124 U/L (38-126); Amylase 64 U/L (30-110); Anion Gap 8.4 mEq/L (5-15); Aspartate Amino Transferase 23 U/L (14-36); Bilirubin,Total 0.4 mg/dl (0.2-1.3); Blood Urea Nitrogen 13 mg/dl (7-17); Calcium 9.4 mg/dl (8.4-10.2); Carbon Dioxide 27 mmol/L (22.0-30.0); Chloride 107 mmol/L (98-107); Chol/HDL Ratio 2.8 (1-3.5); Cholesterol 216 mg/dl (140-200); Estimated Glomerular Filt Rate 65 ml/min (>60); GFR (African American) 78 ML/MIN (>60); Globulin 2.9 g/dL (1.3-3.2); Glucose 77 mg/dl (74-100); HDL Cholesterol 76 mg/dl (40-60); Lipase 191 U/L (23-300); Potassium 4.4 mmoL/L (3.5-5.1); Sodium 138 mmol/L (136-145); Total Protein,Serum 6.5 g/dl (6.3-8.2); Triglycerides 292 mg/dl (30-150); VLDL Cholesterol 58 mg/dL (0-40)
[2024-07-15 15:59] LABS: Direct LDL Cholesterol 48.74 mg/dL (100-129)
[2024-07-15 16:19] LABS: Thyroid Stimulating Hormone 1.72 uIU/mL (0.465-4.68)
== END 2024-07-15 23:59 | disposition home or self-care (01) ==
LOC: LAB 14:19
PROVIDERS: PCP Physician Assistant; Visit Provider Physician Assistant
DX: R10.13 Epigastric pain (principal)
CPT/HCPCS: 36415; 74021; 80050; 80053; 80061; 82150; 83690; 84443; 85025

== ENCOUNTER 2025-11-12 19:03 | Outpatient (CLI) | payer BC, SELFPAY ==
--- OUTSIDE RECORDS SUMMARY | 2025-11-12 17:56 | XMS_ITS | Patient Health Record ---
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 Name Role Phone Sandrita Prajapati Unavailable [phone] Allergies Allergen (clinical drug ingredient) Drug/Non Drug Allergy documented on EMR Reaction Allergy Type Onset Date Status KEFLEX (CEPHALEXIN CAPS) Unspecified Drug Allergy 03/18/2014 Active Reason For Referral No Information Social History Social History Additional Details Category Social Info Options Details Miscellaneous: Caffeine: CAFFEINE USE: 4 Plan Of Treatment No Information Medical (General) History Medical History History ICD Code Acid reflux Anxiety Endometr osis Fibrocystic Breast Urinary Tract Infections Yeast infections ABORTIONS: 0 KLONOPIN 0.5 MG ORAL TABLET MINIVELLE 0.075 MG/24HR TRANSDERMAL PATC H TWICE WEEKLY MINIVELLE 0.1 MG/24HR TRANSDERMAL PATCH TWICE WEEKLY Surgical History Surgery Date(Month/Year) [facility]
--- OUTSIDE RECORDS SUMMARY | 2025-11-12 17:56 | XMS_ITS | Data Portability ---
Author Organization [facility]IL[facility] Gloria MARATHON CLOSED Address [address] [place] [address] Assessment No assessment recorded. Plan of Treatment Reminders Order Date Submit Date Provider Last Modified By Organization Details Last Modified Time Details Appointments None record ed. Lab None record ed. Referral None record ed. Procedures None record ed. Surgeries None record ed. Imaging None record ed. Medication Orders None record ed. Patient TargetsNo targets recorded. Patient InstructionsNo instructions recorded. Reason for Referral None Reported. Procedures Surgical History Date Name Laterality Status Provider Name and Address Organization Details Recorded Time DAK - Destruction BN Lesions completed Anjali Edgard [facility] 08/19/2024 11:44:52 Imaging Results None recorded. Procedure Notes None recorded. Medical Equipment None Reported. Allergies Allergen ID Allergen Name Allergen Category Reaction Reaction Severity Criticality Documentation Date Start Date Code Code System Note Provider Name and Address Organization Details Recorded Time [id number] Keflex medicatio n hives Not available Not available 10/19/2016201016 7 RxNorm React ion: HIVES ; Comme nt: Creat ed By: Luis louieCre atebipin Date: 011 2:08: 20 PM; Not Available [employer] 6 13:02:56 Medications Name Sig Start Date Stop Date Status Note LastModified by Organization Details LastModified Time Vivelle-Dot 0.1 mg/24 hr transdermal patch active Medication Description : estradiol; Route:trans dermal; refills:0 Not Available Not Available Not Available Xanax 0.25 mg tablet Daily active Duration: 20 days;Freque ncy: daily;Alt Frequency: prn;Medicat ion Description : alprazolam; Dosage:1; Route:oral; refills:0; Quantity:20 tablet Not Available Not Available Not Available Claritin-D 12 Hour 5 mg-120 mg tablet,exte nded release Two times a day 2010 active Frequency: bid;Medicat ion Description : loratadine- pseudoephed rine; Dosage:1; Route:oral; refills:1; Quantity:30 tablet, extended release Not Available Not Available Not Available Vitals None Recorded Social History Question Answer Notes LastModified by Organizat ion Details LastModified Time Tobacco Smoking Status Never Smoker Lindsey Jorge [facility] 08/19/2024 11:35:57 What Was The Date Of Your Most Recent Tobacco Screening? 08/19/2024 Information not available 08/19/2024 Has Tobacco Cessation Counseling Been Provided? No Information not available 08/19/2024 Sex: Unknown Functional Status Question Answer Note LastModified by Organizat ion Details LastModified Time Do you use any illicit or recreational drugs? No Information not available 08/19/2024 Do you or have you ever used any other forms of tobacco or nicotine? No Information not available 08/19/2024 What is your level of alcohol consumption? None Information not available 08/19/2024 Mental Status None recorded. Family History Nothing Reported. Medical History No medical history recorded. Gynecological HistoryNo gynecological history recorded. Obstetrics History GPAL:G 0 P 0 0 0 0 Past Encounters Encounter ID Performer Location Encounter Start Date Encounter Closed Date Diagnosis/Indication Diagnosis SNOMED-CT Code Diagnosis ICD10 Code Diagnosis IMO Codes Diagnosis Note [id number] REINIER CARROLL PA-C [address] [address] [place] [address] 08/19/2024 11:01:11 08/19/2024 12:36:13 Multiple benign melanocytic nevi [id number] D22.5 L81.4 L82.1 D18.01 Benign appearing lesions.Re assurance given.Sun protection discussed. Look for physical jennifer sunscreens with at least SPF 30 containing zinc oxide or titanium dioxide as active ingredient .Recommend monthly self examinatio ns and yearly full skin examinatio n with a dermatolog y provider.P atient instructed to call with any concerns or changing lesions. Keratosis pilaris [id number] Q82.8 The nature of the diagnosis was explained. Benign. Typically refractory to most treatments with complete cure rate highly unlikely.T reatment options and expectatio ns discussed. Recommende d Yulisa Easley and Rox OTCPt encouraged to call with any concerns or questions. Seborrheic keratosis [id number] L82.1 R52 BenignWill treat with LN2 since bothersome - L flank Health Concerns Section Related Observation LastModified by Organization Detai ls LastModified Time None Recorded Concern Status LastModified by Organization Details LastModified Time None Recorded Advance Directives Directive None Recorded Payers Insurance Date Sequence Insurance Name Policy Number Policy Stephens Covered Member ID Stephens Member ID Guarantor Name 08/21/2024 1 [employer] [id number] Toni Wall [id number] Franny Wall Notes Date Note Type Note Provider Name and Address Organization Details Recorded Time 08/19/2024 text/html Here for a waist up skin examination - - no history of skin cancer - spots of concern today: face, chest under breast - pt refused exam other than waist up REINIER CARROLL PA-C [address] [place], [address], [facility] 08/19/2024 12:48:39 OBGyn Episode No OBEpisode recorded.
--- OUTSIDE RECORDS SUMMARY | 2025-11-12 17:56 | XMS_ITS | Clinical Summary ---
Author Organization [facility] Address [address] [place] [address] Care Team Providers Care Respite Worker Name Role Phone Alondra Browning Primary Care Provider [phone] Allergies No known active allergies Medications * This document contains information received from the source organization and may not represent a complete record from that organization. Progesterone (PROMETRIUM) 200 MG capsule Take 1 capsule by mouth Daily. Active busPIRone (BUSPAR) 5 MG tabletIndicatio ns:CLEMENTE (generalized anxiety disorder) Take 1 tablet by mouth 2 (Two) Times a Day. 60 tablet 2 10/01/2025 Active LORazepam (ATIVAN) 0.5 MG tabletIndicatio ns:CLEMENTE (generalized anxiety disorder) Take 1 tablet by mouth Daily As Needed for Anxiety. 30 tablet 2 10/01/2025 Active Active Problems Problem Noted Date Diagnosed Date Sore throat 09/16/2024 Family History Medical History Relation Name Comments Breast cancer Neg Hx Ovarian cancer Neg Hx Social History Tobacco Use Types Packs/Day Years Used Date Smoking Tobacco: Never Smokeless Tobacco: Never Tobacco Cessation:Counseling Given: Not Answered Alcohol Use Standard Drinks/Week Comments Never 0 (1 standard drink = 0.6 oz pur e alcohol) PHQ-2 Answer Date Recorded Retired PHQ-9: Brief Depression Severity Measure Score 1 10/11/2023 PHQ-2 Answer Date Recorded Patient Health Questionnaire-9 Score 6 06/29/2025 Comments No Sex and Gender Information Value Date Recorded Sex Assigned at Female 03/23/2025 7:42 PM EDT Legal Sex Female 10:31 AM EDT Gender Identity Not on file Sexual Orientation Not on file Last Filed Vital Signs Vital Sign Reading Time Taken Comments Blood Pressure 144/92 06/29/2025 4:05 PM EDT Pulse 69 06/29/2025 4:05 PM EDT Temperature 37.4 C (99.3 F) 09/16/2024 3:59 PM EDT Respiratory Rate 18 09/16/2024 3:59 PM EDT Oxygen Saturation 97% 06/29/2025 4:05 PM EDT Inhaled Oxygen Concentration - - Weight 54 kg (119 lb) 06/29/2025 4:05 PM EDT Height 152.4 cm (5') 06/29/2025 4:05 PM EDT Body Mass Index 23.24 06/29/2025 4:05 PM EDT Plan of Treatment Health Maintenance Due Date Last Done Comments Annual Gynecologic Pelvic an d Breast Exam 1968 TDAP/TD VACCINES (1 - Tdap) 09/01/1998 08/31/1998 COLOGUARD 2013 COLON CANCER SCREENING 5 YEA R SIGMOIDOSCOPY 2013 COLONOSCOPY [address] CANCER SCREENING [address] CT COLONOGRAPHY 2013 FECAL OCCULT BLOOD TEST 2013 FIT Testing (1 year) 2013 Pneumococcal Vaccine 50+ (1 of 1 - PCV) 2018 ZOSTER VACCINE (1 of 2) 2018 ANNUAL PHYSICAL 01/11/2022 HEPATITIS C SCREENING 01/11/2022 MAMMOGRAM 06/10/2027 06/10/2025, 05/26, 05/19/2024, Additional history exists INFLUENZA VACCINE Completed 09/05/2025, , 09/18/2023, Additional history exists Procedures Procedure Name Priority Date/Time Associated Diagnosis Comments MAMMO SCREENING DIGITAL TOMOSYNTHESIS BILATERAL W CAD Routine 06/05/2025 4:03 PM EDT Other screening mammogram from Last 3 Months or Most Recently Relevant to Health Maintenance Results * Mammo Screening Digital Tomosynthesis Bilateral With CAD (06/05/2025 4:03 PM EDT) Anatomical Region Laterality Modality Breast N/A Mammography 06/10/2025 2:15 PM EDT Impressions 06/10/2025 2:18 PM EDT No suspicious abnormality identified. OVERALL ASSESSMENT: ACR BI-RADS CATEGORY: 1, NEGATIVE: Recommend continued routine annual screening mammogram. The standard false-negative rate of mammography is between 10% and 25%. Complex patterns or increased breast density will markedly elevate the false-negative rate of mammography. A letter, in lay terminology, with the results of this exam will be mailed to the patient. 06/10/2025 2:18 PM by Nissa Golden MD on Narrative 06/10/2025 2:18 PM EDT BILATERAL DIGITAL SCREENING MAMMOGRAM WITH TOMOSYNTHESIS CLINICAL INDICATION: Screening mammogram. TECHNIQUE: Bilateral low dose full field digital breast tomosynthesis imaging was performed. CAD was utilized. COMPARISON: Prior studies dating back to 03/30/2016. FINDINGS: There are scattered areas of fibroglandular density. RIGHT BREAST: No suspicious masses, calcifications, or areas of distortion are seen. LEFT BREAST: No suspicious masses, calcifications, or areas of distortion are seen. Alondra BARRIGA Sade MAMMOGRAPHY ORDERABLES Final Result from Last 3 Months or Most Recently Relevant to Health Maintenance Insurance [facility] PPO Care Teams Respite Worker Relationship Specialty Start Date End Date Alondra Browning PA PCP - General Physician Instructor Extension Work 06/12/17
--- OUTSIDE RECORDS SUMMARY | 2025-11-12 17:57 | XMS_ITS | Data Portability ---
Author Organization [facility] [employer] [place] - MSE Address [address] [place] [address] Assessment No assessment recorded. Plan of Treatment Reminders Order Date Submit Date Provider Last Modified By Organization Details Last Modified Time Details Appointments FOLLOW UP 30 2024 05:00P Tori Browning PA-C Not available Not available Not available Lab lipid panel, serum 2024 025 [facility] [address] [place] [address], [address], 06/24/2025 02:06:44 urinalysi s, dipstick [address], [facility] [place], [address], 06/22/2025 15:39:18 culture, urine 2024 025 [facility]), [address] [place] [address], [address], 06/24/2025 02:06:47 Hepatitis C IgG Ab, qual, serum 2024 025 [email or web address] [address] [place] [address], [address], 06/24/2025 02:06:45 HIV 1 + 2, meaningfu l use set 2024 025 [email or web address] [address] [place], [address], 06/24/2025 02:06:46 CMP, serum or plasma 2024 025 [facility] ([place]), [address] [place], [address], 06/24/2025 02:06:43 CBC w/ auto diff 2024 025 [facility]), [address] [place], [address], 06/24/2025 02:06:43 vitamin D, 25-hydrox y, total, serum 2024 025 [facility]), [address] [place], [address], 06/24/2025 02:06:46 TSH, ultra-sen sitive, serum 2024 025 [facility] ([place]), [address] [place], [address], 06/24/2025 02:06:45 iron + TIBC + ferritin, serum 2024 025 [facility] ([place]), [address] [place], [address], 06/24/2025 02:06:41 cobalamin and folate panel, serum 2024 025 [facility]), [address] [place], [address], 06/24/2025 02:06:44 urinalysi s, dipstick 2023 024 [facility], [address] [facility], [place], [address], 10/06/2024 15:18:08 culture, urine 2023 024 [facility]), [address] [facility], [place], [address], 10/08/2024 03:06:59 Referral None recorded. Procedures None recorded. Surgeries None recorded. Imaging None recorded. Medication Orders levofloxa frances 500 mg tablet 2023 024 [id number], [address], [id number], 06/22/2025 15:31:26 Pyridium 200 mg tablet 2023 024 [id number], [address] [place], [id number], 06/22/2025 15:31:37 Patient TargetsNo targets recorded. Patient Instructions Encounter Date Encounter Id Patient Instructions Last Modified By Organization Details Last Modified Time 10/06/2024 [id number] painful urinatio n (dysuria): care instructions [email or web address] Not available 10/06/2024 15:15:08 Will call when culture returns [email or web address] Not available 10/06/2024 15:30:14 06/22/2025 [id number] painful urinatio n (dysuria): care instructions [email or web address] Not available 06/22/2025 15:39:18 HIV testing: car e instructions Not available 06/22/2025 16:28:40 Reason for Referral None Reported. Results Created Date Observation Date Name Description Value Unit Range Abnormal Flag Note LastModifiedBy Organization Detail LastModifiedTime 10/06/2010/08/2024 URINE CULTU RECARLY urine culture, routine Final report Not Available [facility] ([facility]) [address] [facility], [place], [address], 10/08/2024 03:06:59 10/06/2010/08/2024 URINE CULTU RECARLY result 1 No growth Not Available [facility] ([facility]) [address] [facility], [place], [address], 10/08/2024 03:06:59 10/06/2010/06/2024 urina lysis , dipst ick Leukocytes Trace Not Available [address] [facility], [place], [address], 10/06/2024 15:04:39 10/06/20 24 10/06/2024 urina lysis , dipst ick Nitrite positi ve Not Available [address], [address], 10/06/2024 15:04:39 10/06/20 24 10/06/2024 urina lysis , dipst ick Urobilinogen .2 Not Available [address], [place], [address], 10/06/2024 15:04:39 10/06/20 24 10/06/2024 urina lysis , dipst ick Protein Negati ve Not Available [address], [address], 10/06/2024 15:04:39 10/06/20 24 10/06/2024 urina lysis , dipst ick pH 7.0 Not Available [address], [place], [address], 10/06/2024 15:04:39 10/06/20 24 10/06/2024 urina lysis , dipst ick Blood Hemoly zed: Trace Not Available [address], [place], [address], 10/06/2024 15:04:39 10/06/20 24 10/06/2024 urina lysis , dipst ick Specific [place] 1.015 Not Available [address], [address], 10/06/2024 15:04:39 10/06/20 24 10/06/2024 urina lysis , dipst ick Ketone Negati ve Not Available [facility] [address] [place] [address], [place], [address], 10/06/2024 15:04:39 10/06/20 24 10/06/2024 urina lysis , dipst ick Bilirubin Negati ve Not Available [facility] [address] [place] [address], [place], [address], 10/06/2024 15:04:39 10/06/20 24 10/06/2024 urina lysis , dipst ick Glucose 100 Not Available [address], [address], 10/06/2024 15:04:39 10/06/20 24 10/06/2024 urina lysis , dipst ick Appearance Slight ly Cloudy Not Available [address], [place], [address], 10/06/2024 15:04:39 10/06/20 24 10/06/2024 urina lysis , dipst ick Color [place] Not Available [address], [address], 10/06/2024 15:04:39 06/22/20 25 06/23/2025 FE+TI BC+FE R iron bind.cap.(TI BC) 411 ug/dL 250-45 0 normal Not Available [facility] ([facility]) [address] [facility], [place], [address], 06/24/2025 02:06:41 06/22/20 25 06/23/2025 FE+TI BC+FE R UIBC 375 ug/dL 131-42 5 normal Not Available [facility] ([facility]) [address] [place], [address], 06/24/2025 02:06:41 06/22/20 25 06/23/2025 FE+TI BC+FE R iron 36 ug/dL 27-159 normal Not Available [facility] ([facility]) [address] [place], [address], 06/24/2025 02:06:41 06/22/2006/23/2025 FE+TI BC+FE R iron saturation 9 % 15-55 alert low Not Available [facility] ([facility]) [address] [place], [address], 06/24/2025 02:06:41 06/22/2006/23/2025 FE+TI BC+FE R ferritin 16 NG/mL 15-150 normal Not Available [facility] ([facility]) [address] [place], [address], 06/24/2025 02:06:41 06/22/20 25 06/23/2025 CBC WITH DIFFE RENTI AL/PL ATELE T WBC 11.8 x10e3 /uL 3.4-10 .8 above high normal Not Available [facility] ([facility]) [address] [place], [address], 06/24/2025 02:06:42 06/22/20 25 06/23/2025 CBC WITH DIFFE RENTI AL/PL ATELE T RBC 4.46 x10e6 /uL 3.77-5 .28 normal Not Available [facility] ([facility]) [address] [place], [address], 06/24/2025 02:06:42 06/22/20 25 06/23/2025 CBC WITH DIFFE RENTI AL/PL ATELE T hemoglobin 14.7 g/dL 11.1-1 5.9 normal Not Available [facility] ([facility]) [address] [place], [address], 06/24/2025 02:06:42 06/22/20 25 06/23/2025 CBC WITH DIFFE RENTI AL/PL ATELE T hematocrit 43.4 % 34.0-4 6.6 normal Not Available [facility] ([facility]) [address] [facility], [place], [address], 06/24/2025 02:06:42 06/22/20 25 06/23/2025 CBC WITH DIFFE RENTI AL/PL ATELE T MCV 97 fL 79-97 normal Not Available [facility] ([facility]) [address] [facility], [place], [address], 06/24/2025 02:06:42 06/22/20 25 06/23/2025 CBC WITH DIFFE RENTI AL/PL ATELE T MCH 33.0 pg 26.6-3 3.0 normal Not Available [facility] ([facility]) [address] [facility], [place], [address], 06/24/2025 02:06:42 06/22/20 25 06/23/2025 CBC WITH DIFFE RENTI AL/PL ATELE T MCHC 33.9 g/dL 31.5-3 5.7 normal Not Available [facility] ([facility]) [address] [place], [address], 06/24/2025 02:06:42 06/22/20 25 06/23/2025 CBC WITH DIFFE RENTI AL/PL ATELE T RDW 13.1 % 11.7-1 5.4 Not Available [facility] ([facility]) [address] [place], [address], 06/24/2025 02:06:42 06/22/20 25 06/23/2025 CBC WITH DIFFE RENTI AL/PL ATELE T platelets 319 x10e3 /uL 150-45 0 normal Not Available [facility] ([facility]) [address] [place], [address], 06/24/2025 02:06:42 06/22/20 25 06/23/2025 CBC WITH DIFFE RENTI AL/PL ATELE T neutrophils 72 % not estab. normal Not Available [facility] ([facility]) [address] [facility], [place], [address], 06/24/2025 02:06:42 06/22/20 25 06/23/2025 CBC WITH DIFFE RENTI AL/PL ATELE T lymphs 21 % not estab. normal Not Available [facility] ([facility]) [address] [facility], [place], [address], 06/24/2025 02:06:42 06/22/20 25 06/23/2025 CBC WITH DIFFE RENTI AL/PL ATELE T monocytes 5 % not estab. normal Not Available [facility] ([facility]) [address] [facility], [place], [address], 06/24/2025 02:06:42 06/22/20 25 06/23/2025 CBC WITH DIFFE RENTI AL/PL ATELE T eos 1 % not estab. normal Not Available [facility] ([facility]) [address] [facility], [place], [address], 06/24/2025 02:06:42 06/22/20 25 06/23/2025 CBC WITH DIFFE RENTI AL/PL ATELE T basos 1 % not estab. 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 0 above high normal Not Available [facility] ([facility]) [address] [place], [address], 06/24/2025 02:06:42 06/22/20 25 06/23/2025 CBC WITH DIFFE RENTI AL/PL ATELE T lymphs (absolute) 2.5 x10e3 /uL 0.7-3. 1 normal Not Available [facility] ([facility]) [address] [place], [address], 06/24/2025 02:06:42 06/22/20 25 06/23/2025 CBC WITH DIFFE RENTI AL/PL ATELE T monocytes(ab solute) 0.6 x10e3 /uL 0.1-0. 9 normal Not Available [facility] ([facility]) [address] [place], [address], 06/24/2025 02:06:42 06/22/20 25 06/23/2025 CBC WITH DIFFE RENTI AL/PL ATELE T eos (absolute) 0.2 x10e3 /uL 0.0-0. 4 normal Not Available [facility] ([facility]) [address] [place], [address], 06/24/2025 02:06:42 06/22/20 25 06/23/2025 CBC WITH DIFFE RENTI AL/PL ATELE T baso (absolute) 0.1 x10e3 /uL 0.0-0. 2 normal Not Available [facility] ([facility]) [address] [place], [address], 06/24/2025 02:06:42 06/22/20 25 06/23/2025 CBC WITH DIFFE RENTI AL/PL ATELE T immature granulocytes 0 % not estab. Not Available [facility] ([facility]) [address] [place], [address], 06/24/2025 02:06:42 06/22/20 25 06/23/2025 CBC WITH DIFFE RENTI AL/PL ATELE T immature grans (abs) 0.0 x10e3 /uL 0.0-0. 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 METAB OLIC PANEL (14) glucose 79 mg/dL 70-99 normal Not Available [facility] ([facility]) [address] [facility], [place], [address], 06/24/2025 02:06:43 06/22/20 25 06/23/2025 COMP. METAB OLIC PANEL (14) BUN 20 mg/dL 6-24 normal Not Available [facility] ([facility]) [address] [facility], [place], [address], 06/24/2025 02:06:43 06/22/20 25 06/23/2025 COMP. METAB OLIC PANEL (14) creatinine 0.95 mg/dL 0.57-1 .00 normal Not Available [facility] ([facility]) [address] [facility], [place], [address], 06/24/2025 02:06:43 06/22/20 25 06/23/2025 COMP. METAB OLIC PANEL (14) eGFR 70 mL/mi n/1.7 3 >59 normal Not Available [facility] ([facility]) [address] [place], [address], 06/24/2025 02:06:43 06/22/20 25 06/23/2025 COMP. METAB OLIC PANEL (14) BUN/creatini ne ratio 21 9-23 normal Not Available [facility] ([facility]) [address] [place], [address], 06/24/2025 02:06:43 06/22/20 25 06/23/2025 COMP. METAB OLIC PANEL (14) sodium 138 mmol/ L 134-14 4 normal Not Available [facility] ([facility]) [address] [facility], [place], [address], 06/24/2025 02:06:43 06/22/20 25 06/23/2025 COMP. METAB OLIC PANEL (14) potassium 4.1 mmol/ L 3.5-5. 2 normal Not Available [facility] ([facility]) [address] [place], [address], 06/24/2025 02:06:43 06/22/20 25 06/23/2025 COMP. METAB OLIC PANEL (14) chloride 103 mmol/ L 96-106 normal Not Available [facility] ([facility]) [address] [place], [address], 06/24/2025 02:06:43 06/22/20 25 06/23/2025 COMP. METAB OLIC PANEL (14) carbon dioxide, total 21 mmol/ L 20-29 normal Not Available [facility] ([facility]) [address] [place], [address], 06/24/2025 02:06:43 06/22/20 25 06/23/2025 COMP. METAB OLIC PANEL (14) calcium 9.6 mg/dL 8.7-10 .2 normal Not Available [facility] ([facility]) [address] [place], [address], 06/24/2025 02:06:43 06/22/20 25 06/23/2025 COMP. METAB OLIC PANEL (14) protein, total 6.8 g/dL 6.0-8. 5 normal Not Available [facility] ([facility]) [address] [place], [address], 06/24/2025 02:06:43 06/22/20 25 06/23/2025 COMP. METAB OLIC PANEL (14) albumin 4.2 g/dL 3.8-4. 9 normal Not Available [facility] ([facility]) [address] [place], [address], 06/24/2025 02:06:43 06/22/20 25 06/23/2025 COMP. METAB OLIC PANEL (14) globulin, total 2.6 g/dL 1.5-4. 5 Not Available [facility] ([facility]) [address] [place], [address], 06/24/2025 02:06:43 06/22/20 25 06/23/2025 COMP. METAB OLIC PANEL (14) bilirubin, total 0.2 mg/dL 0.0-1. 2 normal Not Available [facility] ([facility]) [address] [place] [place], [address], 06/24/2025 02:06:43 06/22/20 25 06/23/2025 COMP. METAB OLIC PANEL (14) alkaline phosphatase 94 IU/L 44-121 normal Not Available [facility] ([facility]) [address] [place], [address], 06/24/2025 02:06:43 06/22/20 25 06/23/2025 COMP. METAB OLIC PANEL (14) AST (SGOT) 20 IU/L 0-40 normal Not Available [facility] ([facility]) [address] [place], [address], 06/24/2025 02:06:43 06/22/20 25 06/23/2025 COMP. METAB OLIC PANEL (14) ALT (SGPT) 15 IU/L 0-32 normal Not Available [facility] ([facility]) [address] [place], [address], 06/24/2025 02:06:43 06/22/20 25 06/23/2025 LIPID PANEL cholesterol, total 215 mg/dL 100-19 9 above high normal Not Available [facility] ([facility]) [address] [place], [address], 06/24/2025 02:06:44 06/22/20 25 06/23/2025 LIPID PANEL triglyceride s 254 mg/dL 0-149 above high normal Not Available [facility] ([facility]) [address] [place], [address], 06/24/2025 02:06:44 06/22/20 25 06/23/2025 LIPID PANEL HDL cholesterol 64 mg/dL >39 normal Not Available [facility] ([facility]) [address] [place], [address], 06/24/2025 02:06:44 06/22/20 25 06/23/2025 LIPID PANEL VLDL cholesterol carolann 43 mg/dL 5-40 above high normal Not Available [facility] ([facility]) [address] [place], [address], 06/24/2025 02:06:44 06/22/20 25 06/23/2025 LIPID PANEL LDL chol calc ([facility]) 108 mg/dL 0-99 above high normal Not Available [facility] ([facility]) [address] [place], [address], 06/24/2025 02:06:44 06/22/20 25 06/23/2025 LIPID PANEL 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 Not Available [facility] ([facility]) [address] [facility], [place], [address], 06/24/2025 02:06:44 06/22/2006/23/2025 HCV ANTIB CAROLINE CASCA DE(PC R/GEN O) HCV Ab Non Reacti ve non reacti ve Not Available [facility] ([facility]) [address] [facility], [place], [address], 06/24/2025 02:06:45 06/22/2006/23/2025 HCV ANTIB CAROLINE CASCA DE(PC R/GEN O) interpretati on: Commen t Not infec juan luis with HCV unles s early or acute infec tion is suspe cted (whic h may be delay ed in an immun ocomp romis ed indiv idual ), or other evide nce exist s to indic ate HCV infec tion. Not Available [facility] ([facility]) [address] [facility], [place], [address], 06/24/2025 02:06:45 06/22/2006/23/2025 TSH TSH 3.440 uIU/m L 0.450- 4.500 normal Not Available [facility] ([facility]) [address] [facility], [place], [address], 06/24/2025 02:06:45 06/22/2006/23/2025 VITAM IN D, 25-HY DROXY vitamin D, 25-hydroxy 30.4 NG/mL 30.0-1 00.0 Vitam in D defic iency has been defin ed by the Insti tute of Medic ine and an Endoc rine Socie ty pract ice guide line as a level of serum 25-OH vitam in D less than 20 ng/mL (1,2) . The Endoc rine Socie ty went on to furth er defin e vitam in D insuf ficie ncy as a level betwe en 21 and 29 ng/mL (2). 1. IOM (Inst itute of Medic ine). 2010. Paulie ry refer ence intak es for calci um and D. Wale kilpatrick [place]: The [facility] . 2. Luis sharp [place], Piero parekh [place], Aparna off-F errar i REVELES, et al. Evalu ation , treat ment, and preve ntion of vitam in D defic iency : an Endoc rine Socie ty clini carolann pract ice guide line. JCEM. 2010; 96(7) :1911 -30. Not Available [facility] ([facility]) [address] [facility], [place], [address], 06/24/2025 02:06:46 06/22/2006/23/2025 HIV AB/P2 4 AG WITH REFLE X HIV Ab/P24 Ag screen Non Reacti ve non reacti ve HIV-1 /HIV- 2 antib odies and HIV-1 p24 antig en were NOT detec juan luis. There is no labor atory evide nce of HIV infec tion. HIV Negat thad Not Available [facility] ([facility]) [address] [facility], [place], [address], 06/24/2025 02:06:46 06/22/2006/24/2025 URINE CULTU RE, ROUTI NE urine culture, routine Final report Not Available [facility] ([facility]) [address] [facility], [place], [address], 06/24/2025 02:06:47 06/22/20 25 06/24/2025 URINE CULTU RE, ROUTI NE result 1 COMMEN T Mixed uroge nital melyssa 10,00 0-25, 000 colon y formi ng units per mL Not Available [facility] ([facility]) [address] [facility], [place], [address], 06/24/2025 02:06:47 06/22/20 25 06/22/2025 urina lysis , dipst ick Leukocytes Negati ve Not Available [facility] [address] [place] [address], [place], [address], 06/22/2025 15:27:29 06/22/20 25 06/22/2025 urina lysis , dipst ick Nitrite negati ve Not Available [facility] [address] [place] [address], [place], [address], 06/22/2025 15:27:29 06/22/20 25 06/22/2025 urina lysis , dipst ick Urobilinogen .2 Not Available [facility] [address] [place] [address], [place], [address], 06/22/2025 15:27:29 06/22/20 25 06/22/2025 urina lysis , dipst ick Protein Negati ve Not Available [facility] [address] [place] [address], [place], [address], 06/22/2025 15:27:29 06/22/20 25 06/22/2025 urina lysis , dipst ick pH 7.0 Not Available [address], [address], 06/22/2025 15:27:29 06/22/20 25 06/22/2025 urina lysis , dipst ick Blood Negati ve Not Available [address], [place], [address], 06/22/2025 15:27:29 06/22/20 25 06/22/2025 urina lysis , dipst ick Specific [place] 1.005 Not Available [address], [place], [address], 06/22/2025 15:27:29 06/22/20 25 06/22/2025 urina lysis , dipst ick Ketone Negati ve Not Available [address], [place], [address], 06/22/2025 15:27:29 06/22/20 25 06/22/2025 urina lysis , dipst ick Bilirubin Negati ve Not Available [address], [place], [address], 06/22/2025 15:27:29 06/22/20 25 06/22/2025 urina lysis , dipst ick Glucose Negati ve Not Available [address], [place], [address], 06/22/2025 15:27:29 06/22/20 25 06/22/2025 urina lysis , dipst ick Appearance Clear Not Available [address], [place], [address], 06/22/2025 15:27:29 06/22/20 25 06/22/2025 urina lysis , dipst ick Color Pale Yellow Not Available [address], [address], 06/22/2025 15:27:29 06/10/20 25 06/05/2025 MAMMO , danni liang, ines villal No observ ation record ed. [email or web address] [facility] [address] [place], [address], 06/12/2025 17:29:28 Result Notes None recorded. Problems Name Problem SNOMED Code Status Onset Date Resolution Date Notes Provider Name and Address Organization Details Recorded Time Hyperlipidemia 50001078 Active 2023 NITHYA Millard [address] [place] [address], [address], [employer] 4 15:21:02 Anxiety 98984817 Active 2023 NITHYA Millard [address] [place] [address], [address] 8, [employer] 4 15:21:10 Hormone replacement therapy Active 2023 NITHYA Millard [address] [place] [address], [address], [employer] 4 15:21:25 Acute urinary tract infection 875101030 Active 2023 NITHYA Millard [address] [place] [address], [address], [employer] 4 15:25:27 Vaginitis 18560809 Active 2023 NITHYA Millard [address] [place] [address], [address] 8, [employer] 4 15:48:25 Acute sinusitis 42150227 Active 2024 NITHYA Millard [address] [place] [address], [address] 8, [employer] 5 09:04:49 Acute maxillary sinusitis 44759275 Active 2024 NITHYA Millard [address] [place] [address], [address] 8, [employer] 08:18:47 Dysuria 00246732 Active 2024 NITHYA Millard [address] [place] [address], [address] 8, [employer] 17:23:47 Iron deficiency anemia 56338649 Active 2024 NITHYA Millard [address] [place] [address], [address] 8, [employer] 12:16:01 Acute abdominal pain 432818192 Active 2024 NITHYA Millard [address] [place] [address], [address] 8, [employer] 17:09:25 Problem Notes None recorded. Procedures Surgical History Date Name Laterality Status Provider Name and Address Organization Details Recorded Time 05/19/20 24 Most Recent Mammogram completed [employer] 10/06/2024 14:59:40 Hysterectomy completed [employer] 10/06/2024 14:59:41 Gallbladder Surgery completed [employer] 10/06/2024 14:59:41 Total Hysterectomy completed [employer] 10/06/2024 14:59:41 Imaging Results None recorded. Procedure Notes None recorded. Medical Equipment None Reported. Allergies Allergen ID Allergen Name Allergen Category Reaction Reaction Severity Criticality Documentation Date Start Date Code Code System Note Provider Name and Address Organization Details Recorded Time 87193 atorvasta tin medicatio n arthralgi a (joint pain) moderate low 06/22/2025 44209 RxNorm NITHYA Millard [address] [place] [address], [address] 8, [employer] 17:23:14 42003 Keflex medicatio n hives Not available Not available 11/12/2025201016 7 RxNorm Kefle x Jannet pate, [employer] 16:45:11 Medications Name Sig Start Date Stop Date Status Note LastModified by Organization Details LastModified Time ibuprofen terbinafine fluconazole in dmso 3% 3% 2% solution # Apply 1 time a day to affected toenail. 10/06 completed Not Available Not Available Not Available progesteron e sr 200 mg capsule # Taske 1 capsule by mouth every night 06/22 completed Not Available Not Available Not Available estriol vaginal 1mg/1gm cream # Apply 1gm nightly for 7-10 nights, then 1gm 1-3 nights per week. 06/22 completed Not Available Not Available Not Available buspirone 5 mg tablet TAKE 1 TABLET BY MOUTH TWICE DAILY active Not Available Not Available No t Available atorvastati n 10 mg tablet TAKE 1 TABLET BY MOUTH DAILY 06/22 completed Not Available Not Available Not Available azithromyci n 250 mg tablet TAKE 2 TABLETS (500 MG) BY ORAL ROUTE ONCE DAILY FOR 1 DAY THEN 1 TABLET (250 MG) BY ORAL ROUTE ONCE DAILY FOR 4 DAYS 11/12 completed Not Available Not Available Not Available fluconazole 150 mg tablet TAKE 1 TABLET BY MOUTH ONCE DAILY DIRECTED FOR YEAST INFECTION FOR 1 DAY 06/22 completed Not Available Not Available Not Available hydrocodone 5 mg-acetamin ophen 325 mg tablet TAKE 1 TABLET BY MOUTH EVERY 6 HOURS NEEDED FOR PAIN 10/06 completed Not Available Not Available Not Available sucralfate 1 gram tablet TAKE 1 TABLET BY MOUTH TWICE DAILY 10/06 completed Not Available Not Available Not Available phenazopyri dine 200 mg tablet TAKE 1 TABLET BY MOUTH THREE TIMES DAILY DIRECTED FOR URINARY INFECTION FOR 3 DAYS 06/22 completed Not Available Not Available Not Available prednisone 20 mg tablet Take 1 tablet twice a day by oral route for 5 days. 02/10 completed Not Available Not Available Not Available ciprofloxac in 250 mg tablet TAKE 1 TABLET BY MOUTH TWICE A DAY FOR 5 DAYS 10/06 completed Not Available Not Available Not Available meloxicam 7.5 mg tablet TAKE 1 TABLET BY MOUTH DAILY active Not Available Not Available No t Available amoxicillin 875 mg tablet TAKE 1 TABLET BY MOUTH TWICE DAILY UNTIL GONE 10/06 completed Not Available Not Available Not Available lorazepam 0.5 mg tablet TAKE 1 TABLET BY MOUTH DAILY NEEDED FOR ANXIETY active Not Available Not Available No t Available omeprazole 20 mg capsule,del ayed release TAKE 1 CAPSULE BY MOUTH DAILY 10/06 completed Not Available Not Available Not Available levofloxaci n 500 mg tablet TAKE 1 TABLET BY MOUTH DAILY FOR 7 DAYS 06/22 completed Not Available Not Available Not Available estradiol 0.01% (0.1 mg/gram) vaginal cream APPLY 1 GRAM VAGINALLY 1 TO 3 TIMES EVERY WEEK active Not Available Not Available No t Available methylpredn isolone 4 mg tablets in a dose pack FOLLOW PACKAGE DIRECTION S 11/12 completed Not Available Not Available Not Available cefdinir 300 mg capsule TAKE 1 CAPSULE BY MOUTH TWICE DAILY 10/06 completed Not Available Not Available Not Available nitrofurant oin monohydrate /macrocryst als 100 mg capsule TAKE 1 CAPSULE BY MOUTH TWICE DAILY FOR 7 DAYS 11/11 completed Not Available Not Available Not Available chlorhexidi ne gluconate 0.12 % mouthwash SWISH 15 ML BY MOUTH FOR 30 SECONDS AND SPIT TWICE PER DAY 10/06 completed Not Available Not Available Not Available SEWING MACHINE OPERATOR PLASTIC ZIPPER Thyroid 30 mg tablet TAKE 1 TABLET BY MOUTH EVERY MORNING AND 1 TABLET BY MOUTH MID-AFTER NOON 10/06 completed Not Available Not Available Not Available Slow Release Iron 140 mg (45 mg iron) tablet,exte nded release TAKE 1 TABLET BY MOUTH DAILY active Not Available Not Available No t Available Slow Fe 137 mg (45 mg iron) tablet,exte nded release Take 1 tablet every day by oral route for 90 days. 2024 active Not Available Not Available Not Avai lable Vitals Date Recorded Body height Body mass index (BMI) Body weight Body temperature Heart rate Oxygen saturation Systolic And Diastolic Provider Name and Address Organization Details Last Updated DateTime 5 152.4 cm 22.8 kg/m2 18631.3 1 g 98.3 [degF] 70 /min 100 % 128/76 mm[Hg] Momo [employer] [facility] 5 15:35:37 Date Recorded Body weight Body mass index (BMI) Body height Oxygen saturation Heart rate Systolic And Diastolic Provider Name and Address Organization Details Last Updated DateTime 4 22802.3 7 g 23.4 kg/m2 152.4 cm 96 % 73 /min 137/82 mm[Hg] Ronda Vice [employer] 4 14:58:56 Date Recorded Body height Body mass index (BMI) Body weight Heart rate Oxygen saturation Body temperature Systolic And Diastolic Provider Name and Address Organization Details Last Updated DateTime 5 152.4 cm 23 kg/m2 59298.9 g 85 /min 98 % 98.5 [degF] 145/82 mm[Hg] Jannet Jarrell [employer]. 5 16:48:19 Social History Question Answer Notes LastModified by Organizat ion Details LastModified Time Tobacco Smoking Status Never Smoker Ronda pate, [employer]. 10/06/2024 14:59:40 Do You Have An Advance Directive? No Information not available 10/06/2024 Is Your Home Air Conditioned? Yes Information not available 10/06/2024 How Many Years Have You Consumed Alcohol? 0 [email or web address] Information not available 11/12/2025 Do You Wear A Helmet When Biking? No Information not available 10/06/2024 Are You Blind Or Do You Have Difficulty Seeing? No Information not available 10/06/2024 What Is Your Level Of Caffeine Consumption? Heavy Information not available 10/06/2024 Are You A Caregiver? No Information not available 11/12/2025 What Type Of Detention Officer Do You Use? None Information not available 10/06/2024 Have You Been To An Area Known To Be High Risk For COVID-19? No Information not available 10/06/2024 Are You Deaf Or Do You Have Serious Difficulty Hearing? No Information not available 10/06/2024 What Type Of Diet Are You Following? REGULAR Information not available 10/06/2024 What Is The Highest Grade Or Level Of School You Have Completed Or The Highest Degree You Have Received? [id number] Information not available 10/06/2024 Who Is Your Employer? [employer] Information not available 10/06/2024 How Many Days Of Moderate To Strenuous Exercise, Like A Brisk Walk, Did You Do In The Last 7 Days? 3 Information not available 10/06/2024 Have There Been Any Changes To Your Family Or Social Situation? No Information not available 10/06/2024 Are There Any Guns Present In Your Home? No Information not available 10/06/2024 Which Of Your Hands Is Dominant? Right Information not available 10/06/2024 Do You Engage In Moderate/heavy Exercise (e.g. Brisk Walk, Jogging, Strength Training, Etc)? No [email or web address] Information not available 11/12/2025 What Is Your Home Situation? Both Parents Information not available 10/06/2024 How Many Times In The Past Year Have You Used An Illegal Drug Or Used A Prescription Medication For Nonmedical Reasons? 0 Information not available 11/12/2025 [email or web address] Information not available 11/12/2025 Do You Have A Medical Power Of Community Service Technician? No Information not available 10/06/2024 What Was The Date Of Your Most Recent Tobacco Screening? 11/12/2025 Information not available 11/12/2025 Are There Any Occupational Health Risks Where You Work? No Information not available 10/06/2024 Have You Ever Been Counseled For Unhealthy Alcohol Use? No [email or web address] Information not available 11/12/2025 Do You Have Any Pets? Yes Information not available 10/06/2024 Do You Use Protection During Sex? No Information not available 10/06/2024 What Is Your Relationship Status? Information not available 10/06/2024 Have You Repeated Any Grades? No Information not available 10/06/2024 Do You Wear A Seatbelt When Driving Or As A Passenger? Yes Information not available 11/12/2025 Do You Use Your Seat Belt Or Car Seat Routinely? Yes Information not available 10/06/2024 Are You Sexually Active? Yes Information not available 10/06/2024 Do You Have Any Siblings? Yes Information not available 10/06/2024 Do You Have Smoke And Carbon Monoxide Detectors In Your Home? Yes Information not available 10/06/2024 Are You Passively Exposed To Smoke? No Information not available 10/06/2024 Are There Any Smokers In Your House? No Information not available 10/06/2024 Do You Participate In Social Media? Yes Information not available 10/06/2024 What Types Of Sporting Activities Do You Participate In? None [email or web address] Information not available 11/12/2025 Do You Use Sunscreen Routinely? No Information not available 10/06/2024 Has Tobacco Cessation Counseling Been Provided? No Information not available 10/06/2024 Have You Recently Traveled Abroad? No Information not available 06/22/2025 Do You Have Difficulty Walking Or Climbing Stairs? No Information not available 10/06/2024 Are You Currently In School? No Information not available 10/06/2024 What Contraceptive Method Was Reported At Start Of This Visit? Female Sterilization Information not available 06/22/2025 Do You Feel Safe In Your Home? Yes [email or web address] Information not available 11/12/2025 Do You Have Any Dietary Restrictions? No Information not available 10/06/2024 How Many Days In The Past Year Have You Consumed 4 Or More Drinks? 0 Information not available 10/06/2024 Sex: Female Functional Status Question Answer Note LastModified by Organizat ion Details LastModified Time How many times per week do you consume alcohol? Less than 1 time per week [email or web address] Information not available 11/12/2025 Do you use any illicit or recreational drugs? No Information not available 10/06/2024 Do you feel safe in your relationship? Yes [email or web address] Information not available 11/12/2025 Do you or have you ever used any other forms of tobacco or nicotine? No Information not available 10/06/2024 What is your level of alcohol consumption? Occasional Information not available 10/06/2024 Are you currently employed? Yes Information not available 10/06/2024 Do you have transportation difficulties? No Information not available 10/06/2024 Are you able to walk independently without assistance or assistive devices? [email or web address] Information not available 10/06/2024 Do you have difficulty doing errands alone? No Information not available 10/06/2024 Are you able to care for yourself independently? Yes Information not available 10/06/2024 Do you have difficulty dressing, bathing, grooming, or toileting? No Information not available 10/06/2024 What is your exercise level? Occasional Information not available 10/06/2024 Mental Status Question Answer Note LastModified by Organizat ion Details LastModified Time Do you feel stressed (tense, restless, nervous, or anxious, or unable to sleep at night)? [id number] Information not available 10/06/2024 Do you have difficulty concentrating, remembering or making decisions? No Information no t available 10/06/2024 Are you or have you been involved with bullying? No Information not available 10/06/2024 Family History Relationship Description Onset Age of this Age Resolved Age Notes LastModified by Organization Details LastModified Time Brother Hypertensive disorder Not available 2023 14:59:38 Father Asthma Not available 09/2024 14:59:38 Father Anxiety disorder Not available 2023 14:59:38 Father Malignant neoplasm of colon Not available 2023 14:59:38 Paternal Grandmother Arthritis Not available 09/26 14:59:38 Paternal Grandmother Hypertensive disorder Not available 2023 14:59:38 Paternal Grandmother Heart disease Not available 2023 14:59:38 Mother Asthma Not available 09/2024 14:59:38 Mother Arthritis Not available 10/06/2024 14:59:38 Mother Hypertensive disorder Not available 2023 14:59:38 Maternal Grandmother Asthma Not available 2023 14:59:38 Maternal Grandmother Malignant neoplasm of lung Not available 2023 14:59:38 Maternal Grandmother Arthritis Not available 09/26 14:59:38 Maternal Grandmother Heart disease Not available 2023 14:59:38 Maternal Grandfather Liver problem Not available 2023 14:59:38 Medical History Condition Response Anxiety Disorder Y Acid Reflux (GERD) Y Bladder or Kidney Problems Y High Cholesterol Y Gynecological History Statement/Question Response Abnormal Pap N Menses Monthly N HPV Vaccine N Date of Last Pap Smear Current Control Method Hysterectom y Most Recent Mammogram 05/19/2024 Age at First Child 22 Obstetrics History GPAL:G 2 P 2 0 0 2 Type Value Full Term 2 Living 2 Total 2 Immunizations Vaccine Type Date Status Note Provider Nam e and Address Organization Details Recorded Time influenza, unspecified formulation 4 completed NITHYA Millard [address] [place] [address], [id number], [facility] [employer] 10/06/2024 15:20:19 MMR 8 completed Not Available [facility] 11/12/2025 16:35:39 Td (adult), 2 Lf tetanus toxoid, preservative free, adsorbed 8 completed Not Available [facility] 11/12/2025 16:35:39 Influenza, split virus, trivalent, PF 8 completed Not Available [facility] 11/12/2025 16:35:39 COVID-19, mRNA, LNP-S, PF, 100 mcg/0.5mL dose or 50 mcg/0.25mL dose 1 completed Not Available [facility] 11/12/2025 16:35:39 COVID-19, mRNA, LNP-S, PF, 100 mcg/0.5mL dose or 50 mcg/0.25mL dose 1 completed Not Available [facility] 11/12/2025 16:35:39 Influenza, recombinant, quadrivalent, PF 1 completed Not Available [facility] 11/12/2025 16:35:39 COVID-19, mRNA, LNP-S, PF, 100 mcg/0.5mL dose or 50 mcg/0.25mL dose 2 completed Not Available [facility] 11/12/2025 16:35:39 Influenza, split virus, quadrivalent, PF 3 completed Not Available [facility] 11/12/2025 16:35:39 Influenza, recombinant, trivalent, PF 5 completed Not Available [facility] 11/12/2025 16:35:39 Past Encounters Encounter ID Performer Location Encounter Start Date Encounter Closed Date Diagnosis/Indication Diagnosis SNOMED-CT Code Diagnosis ICD10 Code Diagnosis IMO Codes Diagnosis Note [id number] NITHYA Millard [facility] [address] [place] [address] 10/06/2024 14:30:42 10/06/2024 15:26:53 Dysuria 22993864 R30.0 Acute urin kishan tract infection 637765503 N39.0 [id number] NITHYA iMllard [facility] [address] [place] [address] 06/22/2025 14:56:01 06/22/2025 15:55:20 Dysuria 00112560 R30.0 09044 Culture pending but UA negative Fatigue 54089995 R53.83 98900840 Mixed hyperlipidemia 267 522554 E78.2 88666 HIV screening 000899614 Z11.4 163514 Viral scre ening status 415304595 Z11.59 481068 [id number] NITHYA Millard [facility] [address] [place] [address] 11/12/2025 16:32:09 11/12/2025 17:09:19 Acute abdominal pain 868081900 R10.9 40312 Health Concerns Section Related Observation LastModified by Organization Detai ls LastModified Time None Recorded Concern Status LastModified by Organization Details LastModified Time None Recorded Advance Directives Directive N: Payers Insurance Date Sequence Insurance Name Policy Number Policy Stephens Covered Member ID Stephens Member ID Guarantor Name 11/12/2025 1 [place] [id number] Toni Wall [id number] [place] 11/12/2025 1 [place] [id number] Toni Wall [id number] [place] Notes Date Note Type Note Provider Name and Address Organization Details Recorded Time 10/06/2024 text/html Patient presents with 2 day history of urinary pressure, frequency, dysuria. No vomiting. No fever. NITHYA Millard [address] [place] [address], [phone], [place] [employer] 10/06/2024 15:32:05 06/22/2025 text/html ROS as noted in the HPI Intermittent dysuria. No fever. Woule like to make sure she doesn't have a UTI. Would also like labs. She stays tired all the time. Stopped taking her atorvastatin because it made her feel worse. NITHYA Millard [address] [place] [address], [phone], [employer] 06/22/2025 17:25:54 OBGyn Episode No OBEpisode recorded.
--- OUTSIDE RECORDS SUMMARY | 2025-11-12 18:37 | XMS_ITS | Clinical Summary ---
[facility] Organization [facility] Address [address] [place] [address] Care Team Providers Care Base Wad Operator Adjuster Name Role Phone Alondra Browning Primary Care Provider [phone] Allergies No known active allergies Medications * [...] Most Recently Relevant to Health Maintenance Insurance [facility] PPO Care Teams Base Wad Operator Adjuster Relationship Specialty Start Date End Date Alondra Browning PA PCP - General Physician Manager Animal 06/12/17
--- OUTSIDE RECORDS SUMMARY | 2025-11-12 19:09 | XMS_ITS | Clinical Summary ---
Author Organization [facility] Address [address] [place] [address] Care Team Providers Care Pot Pusher Name Role Phone Alondra Browning Primary Care Provider [phone] Allergies No known active allergies Medications * [...] Most Recently Relevant to Health Maintenance Insurance [facility] PPO Care Teams Pot Pusher Relationship Specialty Start Date End Date Alondra Browning PA PCP - General Physician Field Crop Farmer 06/12/17
--- NOTE | 2025-11-12 19:39 | XR_ITS ---
PROCEDURE INFORMATION: Exam: XR Complete Acute Abdomen Series Including Chest Exam date and time: 11/12/2025 7:30 PM Age: 55 years old Clinical indication: Abdominal pain TECHNIQUE: Imaging protocol: Radiologic exam. Complete acute abdomen series, including 2 or more views of the abdomen and a single view chest. COMPARISON: CR XR ACUTE ABDOMEN SERIES 07/15/2024 2:55 PM FINDINGS: Tubes, catheters and devices: Surgical clips overlie the gallbladder fossa. Lungs: Normal. No consolidation. Pleural spaces: Normal. No pleural effusions. No pneumothorax. Heart/Mediastinum: Normal. No cardiomegaly. Gastrointestinal tract: Normal. No bowel dilation. Intraperitoneal space: Normal. No free air. Bones/joints: Normal. No acute fracture. Soft tissues: Normal. IMPRESSION: No acute findings.
== END 2025-11-12 23:59 | disposition home or self-care (01) ==
PROVIDERS: PCP Physician Assistant; Visit Provider Physician Assistant
DX: R10.9 Unspecified abdominal pain (principal)
CPT/HCPCS: 74021